=== PATIENT | male | born 1995 | race Caucasian/White ===

== ENCOUNTER 2018-06-05 22:31 | Emergency (ER) | payer BC ==
[~2018-06-05] VITALS: Ht 172.7 cm; Wt 109.1 kg
[2018-06-05 23:25] LABS: INFLUENZA TYPE A NEGATIVE FOR TYPE A (NEGATIVE); INFLUENZA TYPE B NEGATIVE FOR TYPE B (NEGATIVE)
[2018-06-06] MEDS ORDERED: IPRATROPIUM BROMIDE 0.5 MG/2.5 ML NEB SOLUTION NEB ONE
[2018-06-06] MEDS ORDERED: ALBUTEROL SULFATE HFA 90 MCG/PUFF 8 GM INHALER IH ONE
[2018-06-06] MEDS ORDERED: ALBUTEROL SULFATE 2.5 MG/0.5 ML NEB SOLUTION NEB ONE
[2018-06-06 02:22] VITALS: BP 135/78
== END 2018-06-06 02:43 | disposition home or self-care (01) ==
LOC: EMS 22:33
DX: J06.9 Acute upper respiratory infection, unspecified (principal)
CPT/HCPCS: 87804; 94640; J3535